=== PATIENT | female | born 1970 | race Caucasian/White ===

== ENCOUNTER 2020-08-15 12:07 | Emergency (ER) | payer SELFPAY ==
[~2020-08-15] VITALS: Ht 160 cm; Wt 66.7 kg
[2020-08-15 12:20] VITALS: BP 130/78
[2020-08-15 13:30] VITALS: BP 130/78
== END 2020-08-15 14:36 | disposition home or self-care (01) ==
LOC: MED 12:07
DX: T78.40XA Allergy, unspecified, initial encounter (principal); Z88.0 Allergy status to penicillin; X58.XXXA Exposure to other specified factors, initial encounter
CPT/HCPCS: 99283